=== PATIENT | male | born 1940 | race Caucasian/White ===

== ENCOUNTER 2020-01-06 19:36 | Emergency (ER) | payer MEDICARE ==
[~2020-01-06] VITALS: Ht 177.8 cm; Wt 84.1 kg
[~2020-01-06 19:36] MED LIST: HCTZ25T PO; LISI40TA4; PRIM50TA27 PO; SIMV-45; TEMA15CA5
[2020-01-06 19:55] VITALS: BP 129/76
[2020-01-06] MEDS ORDERED: DOXY100C43 PO (21:51)
== END 2020-01-06 22:20 | disposition home or self-care (01) ==
LOC: ER 19:37
DX: U07.1 COVID-19 (principal); J20.9 Acute bronchitis, unspecified
CPT/HCPCS: 36415; 71045; 87635; 99284

== ENCOUNTER 2022-07-23 15:30 | Emergency (ER) | payer MEDICARE ==
[~2022-07-23] VITALS: Ht 180.3 cm; Wt 74.4 kg
[~2022-07-23 15:30] MED LIST changes: +LISI40TA13; -LISI40TA4
[2022-07-23 15:40] VITALS: BP 119/66
[2022-07-23] MEDS ORDERED: MOLN200C PO (16:28)
== END 2022-07-23 17:01 | disposition home or self-care (01) ==
LOC: ER 15:30
DX: U07.1 COVID-19 (principal)
CPT/HCPCS: 99283

== ENCOUNTER 2024-03-04 07:46 | Emergency (ER) | payer MEDICARE ==
[~2024-03-04] VITALS: Ht 177.8 cm; Wt 81.2 kg
[~2024-03-04 07:46] MED LIST changes: +MOLN200C PO
[2024-03-04] MEDS ORDERED: tetanus & diphtheria toxoid (Td) vaccine 0.5ml IMVAC ONE (09:15)
[2024-03-04] MEDS: TETanus/Pertussis (Acell)/Diphther VAC/PF (Tdap-Adult) 0.5ml syringe IMVAC ONE (09:20)
[2024-03-04 09:26] VITALS: BP 125/62; PULSE 68; RESP 18; TEMP 97; O2SAT 98
== END 2024-03-04 09:27 | disposition home or self-care (01) ==
LOC: ER 07:46
DX: S80.921D Unspecified superficial injury of right lower leg, subsequent encounter (principal); Z79.899 Other long term (current) drug therapy; X58.XXXD Exposure to other specified factors, subsequent encounter
CPT/HCPCS: 90715; 99283; A4330; A6223; A6258; A6402; G0008; J7030; 90471; A6449